=== PATIENT | female | born 1985 | race African-American/Black ===

== ENCOUNTER 2023-03-26 19:54 | Emergency (ER) | payer MEDICAID, OTHER ==
[~2023-03-26] VITALS: Ht 165.1 cm; Wt 77.0 kg
[2023-03-26 19:58] VITALS: BP 111/69; PULSE 97; RESP 18; TEMP 97.8; O2SAT 100
== END 2023-03-26 21:41 | disposition left against medical advice (07) ==
LOC: ER 19:54
DX: G93.40 Encephalopathy, unspecified (principal); R41.82 Altered mental status, unspecified
CPT/HCPCS: 93005; 99283

== ENCOUNTER 2024-01-07 18:35 | Emergency (ER) | payer MEDICAID | END 2024-01-07 18:47 | disposition left against medical advice (07) | LOC: ER 18:35 | DX: Z11.3 Encounter for screening for infections with a predominantly sexual mode of transmission (principal); Z53.21 Procedure and treatment not carried out due to patient leaving prior to being seen by health care provider ==

== ENCOUNTER 2024-01-29 15:53 | Emergency (ER) | payer MEDICAID ==
[~2024-01-29] VITALS: Ht 167.6 cm; Wt 81.0 kg
[2024-01-29 16:08] VITALS: O2SAT 99
[2024-01-29 16:33] LABS: CLARITY URINE CLEAR (CLEAR); COLOR URINE YELLOW (YELLOW); GLUCOSE URINE NEGATIVE (NEGATIVE); KETONES URINE NEGATIVE (NEGATIVE); LEUKOCYTE ESTERASE URINE NEGATIVE (NEGATIVE); NITRITE URINE NEGATIVE (NEGATIVE); OCCULT BLOOD URINE 3+ (NEGATIVE); PROTEIN URINE TRACE (NEGATIVE); UROBILINOGEN URINE 0.2 E.U./dL (0.2-1.0)
[2024-01-29 16:56] LABS: *AMPHETAMINES SCREEN URINE PRESUMPTIVE POSITIVE (NEGATIVE); *BARBITURATES SCREEN URINE NEGATIVE (NEGATIVE); *BENZODIAZEPINES SCREEN URINE NEGATIVE (NEGATIVE); *COCAINE SCREEN URINE NEGATIVE (NEGATIVE)
[2024-01-29 16:57] LABS: CANNABINOID URINE SCREEN PRESUMPTIVE POSITIVE (NEGATIVE); ECSTASY MDMA SCREEN URINE NEGATIVE (NEGATIVE); METHADONE URINE SCREEN NEGATIVE (NEGATIVE); OPIATES URINE SCREEN NEGATIVE (NEGATIVE); PHENCYCLIDINE URINE SCREEN PRESUMTIVE POSITIVE (NEGATIVE)
[2024-01-29 17:05] LABS: BACTERIA URINE 1+; SQUAMOUS EPITHELIAL CELL URINE 1+ /lpf (RARE/1+)
[2024-01-29 17:06] LABS: WBC URINE 0-2 /hpf (0-2)
[2024-01-29 18:00] VITALS: BP 159/85; PULSE 93; RESP 18; TEMP 36.94740; O2SAT 99
== END 2024-01-29 18:03 | disposition home or self-care (01) ==
LOC: ER 15:53
DX: N93.9 Abnormal uterine and vaginal bleeding, unspecified (principal); F15.10 Other stimulant abuse, uncomplicated; F12.90 Cannabis use, unspecified, uncomplicated; F16.10 Hallucinogen abuse, uncomplicated; Z32.02 Encounter for pregnancy test, result negative
CPT/HCPCS: 80305; 81003; 81025; 99283

== ENCOUNTER 2024-12-01 02:46 | Emergency (ER) | payer MEDICAID ==
[~2024-12-01] VITALS: Ht 167.6 cm; Wt 68.0 kg
[2024-12-01 02:50] VITALS: O2SAT 100
[2024-12-01] MEDS: ONDANSETRON HCL 4MG/2ML INJ IV ONE (03:45)
[2024-12-01] MEDS: SODIUM CHLORIDE 0.9% 1,000 ML IV ONE (03:45)
[2024-12-01] MEDS: NALOXONE HCL 1MG/ML 2ML VIAL IV ONE (03:45)
[2024-12-01 04:19] LABS: BASOPHILS % 0.9 % (0.0-2.0); EOSINOPHILS % 1.7 % (0.0-5.0); HEMATOCRIT. 36.4 % (36.0-48.0); HEMOGLOBIN. 11.7 g/dL (12.0-16.0); LYMPHOCYTES % 42.6 % (20.0-50.0); MEAN PLATELET VOLUME 6.9 fl (7.4-10.4); MONOCYTES % 5.7 % (2.0-8.0); NEUTROPHILS % 49.1 % (40.0-76.0); PLATELET 400 x1000/uL (130-400); RED BLOOD CELL COUNT 4.14 mill/uL (4.2-5.4); RED CELL DISTRIBUTION WIDTH 16.9 % (11.6-14.6)
[2024-12-01 04:33] LABS: CREATININE 0.8 mg/dL (0.6-1.0); UREA NITROGEN BLOOD 9 mg/dL (9-23)
[2024-12-01 04:35] LABS: ASPARTATE AMINOTRANSFERASE 32 IU/L (<34)
[2024-12-01 04:36] LABS: BILIRUBIN DIRECT < 0.1 mg/dL (<=3.0); BILIRUBIN TOTAL 0.2 mg/dL (0.1-1.0); PROTEIN TOTAL 6.3 g/dL (6.0-8.3)
[2024-12-01 04:56] LABS: ETHANOL BLOOD 190 mg/dL (<10)
[2024-12-01 05:00] LABS: HCG SCREEN NEGATIVE
[2024-12-01 10:00] VITALS: BP 117/81; PULSE 82; RESP 16; TEMP 36.7; O2SAT 100
== END 2024-12-01 11:09 | disposition home or self-care (01) ==
LOC: ER 02:46 → CMPBEDREQ 19:14
DX: F10.129 Alcohol abuse with intoxication, unspecified (principal); F12.90 Cannabis use, unspecified, uncomplicated; Z98.890 Other specified postprocedural states; Z79.899 Other long term (current) drug therapy; Y90.9 Presence of alcohol in blood, level not specified
CPT/HCPCS: 80076; 80048; 80307; 80329; 80320; 82140; 84703; 85025; 36415; 71045; 70450; 96361; 96374; 96375; 99285; J2312; J2405; J7030; Z7610; G0480

== ENCOUNTER 2025-02-25 15:17 | Emergency (ER) | payer MEDICAID ==
[~2025-02-25] VITALS: Ht 165.1 cm; Wt 75.0 kg
[2025-02-25 15:18] VITALS: BP 122/80; PULSE 110; RESP 20; TEMP 98; O2SAT 100
== END 2025-02-25 16:10 | disposition left against medical advice (07) ==
LOC: ER 15:17
DX: Z00.8 Encounter for other general examination (principal)
CPT/HCPCS: 99281